=== PATIENT | female | born 1965 | race Caucasian/White ===

== ENCOUNTER 2020-04-29 13:13 | Emergency (ER) | payer BC ==
[~2020-04-29] VITALS: Ht 167.6 cm; Wt 81.7 kg
[~2020-04-29 13:13] MED LIST: GABA300 PO; HYDCHL12.5; LISI5 PO; OXYC5 PO
[2020-04-29] MEDS ORDERED: Percocet 10-321 EACH PO (16:48)
[2020-04-29] MEDS ORDERED: KETO10 PO (16:48)
[2020-04-29] MEDS ORDERED: LIDO700A20 TOP (16:48)
== END 2020-04-29 16:58 | disposition home or self-care (01) ==
LOC: ER 13:13
DX: M54.12 Radiculopathy, cervical region (principal); Z88.8 Allergy status to other drugs, medicaments and biological substances; Z79.899 Other long term (current) drug therapy; I10 Essential (primary) hypertension; F17.200 Nicotine dependence, unspecified, uncomplicated
CPT/HCPCS: 36415; 84484; 93005; 93010; 93931; 96372-59; 96374; 99284-25; J1170; J1885; J3010

== ENCOUNTER 2020-08-30 08:27 | Day surgery (SDC) | payer BC ==
[~2020-08-30] VITALS: Ht 167.6 cm; Wt 83.4 kg
[~2020-08-30 08:27] MED LIST changes: +AMIT50 PO; +Amlodipine Bes2.5 MG PO; +CYCL10 PO; +Clomipramine HC25 MG PO; +ESTR2 PO; +FURO20 PO; +HYDHCL25 PO; +KETO10 PO; +LIDO700A20 TOP; +LISINOPRIL-HCT1 EACH PO; +OXYC10ER PO; +Percocet 10-321 EACH PO
== END 2020-08-30 13:46 | disposition home or self-care (01) ==
LOC: ORSCSDS 08:27 → NM 09:00 → ORSCSDS 09:00
PROVIDERS: Surgery
PROC: 0HBHXZX Excision of Right Upper Leg Skin, External Approach, Diagnostic (ICD-10-PCS; principal; 2020-08-30 10:30)
PROC: 07BH0ZX Excision of Right Inguinal Lymphatic, Open Approach, Diagnostic (ICD-10-PCS; principal; 2020-08-30 10:30)
DX: C43.71 Malignant melanoma of right lower limb, including hip (principal); D36.0 Benign neoplasm of lymph nodes; I10 Essential (primary) hypertension
CPT/HCPCS: 78195; A9520; J0690; J2250; J2370; J2704; J3010; J7120; Q9968

== ENCOUNTER 2020-09-17 06:00 | Day surgery (SDC) | payer BC ==
[~2020-09-17] VITALS: Ht 167.6 cm; Wt 82.4 kg
--- NOTE | 2020-09-17 06:53 | NUR ---
Ambulatory in Day Surgery History, Chart, Medications and Allergies reviewed before start of procedure. Lungs clear T/O to Auscultation. Pre-Op teaching done. Pt verbalizes understanding.
--- NOTE | 2020-09-17 10:52 | NUR ---
PT PAIN LEVEL DOWN TO A TOLERABLE LEVEL AT DISCHARGE, ABLE TO HAVE A CONVERSATION WITHOUT DIFFICULTY AND DEMONSTRATE BACK [facility]. DISCARDED 15CC SANG DRAINAGE OUT OF [facility] AND SENT HOME CONTAINER AND [facility] INFO. Patient up to Ambulate independently. Gait steady. Discharge instructions reviewed with patient. Patient verbalizes understanding. Copy given to patient to take home. Patient States Post-Procedure ride home has been arranged. Discharged via wheelchair to private car for ride home. SMALL AMOUNT OF SANG DRAINAGE ON DRESSING. PT AWARE OF WHEN TO CALL DR HARRY FOR DRESSING AND SITE CARE. ALL BERLONINGS RETURNED TO PATIENT. RECEIVED 2 PAIN PILLS BEFORE LEAVING STEP AMND TOLERATED PO FOOD AND FLUIDS.
== END 2020-09-17 23:12 | disposition home or self-care (01) ==
LOC: ORSCMMR 06:00 → ORD 07:30 → ORSCMMR 07:30
PROVIDERS: Surgery
PROC: 07L Lymphatic and Hemic Systems, Occlusion (ICD-10-PCS; principal; 2020-09-17 07:30)
DX: I89.8 Other specified noninfective disorders of lymphatic vessels and lymph nodes (principal); C43.71 Malignant melanoma of right lower limb, including hip; I10 Essential (primary) hypertension; Z79.899 Other long term (current) drug therapy
CPT/HCPCS: A9270; J0690; J1100; J1885; J2250; J2405; J2704; J3010; J7120; Q9968

== ENCOUNTER → 2021-09-30 | Outpatient (CLI) | payer BC | LOC: LAB 13:05 → LAB SHORT 13:05 | DX: D48.5 Neoplasm of uncertain behavior of skin (principal) | CPT/HCPCS: 88305 ==

== ENCOUNTER → 2022-04-07 | Outpatient (CLI) | payer BC | END | disposition home or self-care (01) | LOC: LAB SHORT 12:20 → PLD 12:20 | DX: D48.5 Neoplasm of uncertain behavior of skin (principal) | CPT/HCPCS: 88305 ==

== ENCOUNTER 2023-03-10 18:49 | Inpatient (IN) | payer OTHER ==
[~2023-03-10] VITALS: Ht 167.6 cm; Wt 75.0 kg
[~2023-03-10 18:49] MED LIST changes: +AMIT25 PO; +LISI20 PO; +Ondansetron Odt8 MG; +POTA10T PO; +Prednisone10 MG PO; +QUETIAPINE FUMA25 MG PO; +TIZA4 PO
[2023-03-10] MEDS ORDERED: ZANAFLEX413 PO (19:04)
[2023-03-10 19:47] LABS: BASOPHILS ABSOLUTE AUTO 0.01 K/mm3 (0.00-0.23); BASOPHILS PERCENT AUTO 0 % (0-2); EOSINOPHILS ABSOLUTE AUTO 0.02 K/mm3 (0.00-0.68); EOSINOPHILS PERCENT AUTO 0 % (0-6); Hematocrit 41.8 % (33.0-51.0); Hemoglobin 14.7 g/dL (11.5-16.0); IMMATURE GRAN ABSOLUTE AUTO 0.02 K/mm3 (0.00-0.10); IMMATURE GRAN PERCENT AUTO 0 % (0-1); LYMPHOCYTES ABSOLUTE AUTO 1.01 K/mm3 (0.84-5.20); LYMPHOCYTES PERCENT AUTO 13 % (21-46); MONOCYTES ABSOLUTE AUTO 0.04 K/mm3 (0.16-1.47); MONOCYTES PERCENT AUTO 1 % (4-13); Mean Corpuscular HGB 32.8 pg (26.0-34.0); Mean Corpuscular HGB Conc 35.2 g/dL (31.5-36.5); Mean Corpuscular Volume 93 fL (80-100); Mean Platelet Volume 11.8 fL (9.1-12.4); NEUTROPHILS ABSOLUTE AUTO 6.58 K/mm3 (1.96-9.15); NEUTROPHILS PERCENT AUTO 86 % (41-73); Platelet Count 217 K/mm3 (150-400); RDW Coefficient Variation 11.9 % (11.7-14.2); RDW Standard Deviation 41.4 fL (35.1-46.3); Red Blood Cell Count 4.48 M/mm3 (3.80-5.20); White Blood Cell Count 7.68 K/mm3 (4.00-11.30)
[2023-03-10 20:11] LABS: Albumin, Blood 3.6 g/dL (3.4-5.0); Albumin/Globulin Ratio 0.9 (0.8-1.8); Bilirubin, Total 0.6 mg/dL (0.1-1.0); Bun/Creatinine Ratio 21.8 (12.0-20.0); Calcium, Blood 9.5 mg/dL (8.5-10.1); Creatinine, Blood 0.64 mg/dL (0.40-1.00); Globulin, Blood 3.9 g/dL (2.2-4.0); Potassium, Blood 3.7 mmol/L (3.5-5.5); Total Protein, Blood 7.5 g/dL (6.4-8.2)
--- NOTE | 2023-03-11 00:25 | NUR ---
PT ADMITTED TO MEDICAL FLOOR BED. PT TRANSFERS SELF TO MEDICAL FLOOR BED. PT IS ALERT AND ORIENTED, CURRENTLY HER PAIN IS CONTROLLED. PT DENIES NAUSEA AT THIS TIME. WITH PT. ORIENTED TO CALL LIGHT AND TO ROOM. PT IS INDEPENDENT UP TO [facility] NEEDED. WILL CONTINUE TO MONITOR.
[2023-03-11 00:29] VITALS: BP 141/83
[2023-03-11 02:48] VITALS: BP 155/93
--- NOTE | 2023-03-11 02:50 | NUR ---
PT ADMITTED TO FLOOR VIA WC FROM ER. PT TRANSFERRED SELF TO MEDICAL FLOOR BED. PT IS ALERT AND ORIENTED, AND DENIES ANY CHEST PAIN AT THIS TIME. PT HAS NITRO PASTE TO CHEST WALL. PT DENIES ANY OTHER COMPLAINTS OF PAIN OR DISCOMFORT AT THIS TIME. ORIENTED TO ROOM, CALL LIGHT SYSTEM. WILL CONTINUE TO MONITOR.
--- NOTE | 2023-03-11 04:02 | NUR ---
LACTATED RINGERS ACTUALLY STARTED AT 0055 TONIGHT, DURING DOWN TIME CHARTING.
--- NOTE | 2023-03-11 04:10 | NUR ---
PT REPORTS HEADACHE. NITRO PASTE REMOVED FROM CHEST WALL.
--- NOTE | 2023-03-11 04:20 | NUR ---
PT REPORTS LEFT SIDED SHARP CHEST PAIN, 3/10 SCALE, PT IS DIAPHORETIC AND REPORTS NAUSEA. EKG BEING PERFORMED. WILL GIVE PO ZOFRAN. 0424 - EKG NSR WITH MARKED SINUS ARRHYTHMIA. PT NOW DENIES ZOFRAN. CHEST PAIN 1/10 WHEN PT WAS LAYING FLAT. PT THEN REPORTS NEEDS TO USE BRP FOR BM.
[2023-03-11 05:38] LABS: BASOPHILS ABSOLUTE AUTO 0.01 K/mm3 (0.00-0.23); BASOPHILS PERCENT AUTO 0 % (0-2); EOSINOPHILS PERCENT AUTO 0 % (0-6); Hematocrit 40.6 % (33.0-51.0); Hemoglobin 14.5 g/dL (11.5-16.0); IMMATURE GRAN ABSOLUTE AUTO 0.06 K/mm3 (0.00-0.10); IMMATURE GRAN PERCENT AUTO 1 % (0-1); LYMPHOCYTES ABSOLUTE AUTO 1.38 K/mm3 (0.84-5.20); LYMPHOCYTES PERCENT AUTO 15 % (21-46); MONOCYTES ABSOLUTE AUTO 0.09 K/mm3 (0.16-1.47); MONOCYTES PERCENT AUTO 1 % (4-13); Mean Corpuscular HGB 33.3 pg (26.0-34.0); Mean Corpuscular HGB Conc 35.7 g/dL (31.5-36.5); Mean Corpuscular Volume 93 fL (80-100); NEUTROPHILS ABSOLUTE AUTO 7.99 K/mm3 (1.96-9.15); NEUTROPHILS PERCENT AUTO 84 % (41-73); Platelet Count 186 K/mm3 (150-400); RDW Coefficient Variation 11.9 % (11.7-14.2); Red Blood Cell Count 4.35 M/mm3 (3.80-5.20); White Blood Cell Count 9.53 K/mm3 (4.00-11.30)
--- NOTE | 2023-03-11 06:02 | NUR ---
PT MEDICATED WITH TORADOL, PO DILAUDED, AND CARAFATE WITHOUT PAIN RELIEF. CONTACTED DR. WHITNEY, RECEIVED ORDER FOR GI COCKTAIL - SEE EMAR. WILL FOLLOW UP WITH DR. WHITNEY IF PAIN NOT RELIEVED WITH GI COCKTAIL. CALL LIGHT WITHIN REACH.
[2023-03-11 06:06] LABS: Albumin, Blood 3.3 g/dL (3.4-5.0); Albumin/Globulin Ratio 0.9 (0.8-1.8); Bilirubin, Total 0.6 mg/dL (0.1-1.0); Bun/Creatinine Ratio 29.4 (12.0-20.0); Calcium, Blood 8.9 mg/dL (8.5-10.1); Creatinine, Blood 0.58 mg/dL (0.40-1.00); Globulin, Blood 3.6 g/dL (2.2-4.0); Magnesium, Blood 1.8 mg/dL (1.6-2.4); Potassium, Blood 4.1 mmol/L (3.5-5.5); Total Protein, Blood 6.9 g/dL (6.4-8.2)
--- NOTE | 2023-03-11 07:20 | NUR ---
SHIFT SUMMARY - MEDICATED SEVERAL TIMES DURING THE NIGHT WITHOUT MUCH RELIEF - SEE EMAR FOR DOCUMENTATION. PT IS NOW SLEEPING AFTER GIVING 1MG IV DILAUDED THIS AM, AND REPORTED PAIN RELIEF AFTER THIS IV ADMINISTRATION. PT'S PAIN IS IN HER UPPER TO MID ABDOMEN. CALL LIGHT WITHIN REACH. BED IN LOW POSITION. REPORT GIVEN TO JODY ALMEIDA THIS AM.
[2023-03-11 07:44] VITALS: BP 138/81
--- NOTE | 2023-03-11 16:15 | NUR ---
Patient is lying in bed and alert. Patient's spouse, Hebert, is bedside. They explain about patient's medical history and their concerns about what might be happening medically with her currently. They are also curious about the lulle in activity toward finding answers and about what the next steps might be, clinically. They are pleasant and have a kind demeanor. They talk freely about the loss of loved ones and the successes of their children and grandchildren. I normalized their experience, listened empathically and provided prayer. Patient and Hebert responded well and showed signs of increased peace.
--- NOTE | 2023-03-11 16:17 | NUR ---
PT IS A/OX4, PLEASANT AND COOPERATIVE. THE PT IS UP IND IN HER ROOM. THE PT CONTINUES TO HAVE UNCONTROLED ABD PAIN. PT GIVEN TORADOL, PO DILAUDID AND GI COCKTAILS T/O THE DAY. PT DENIES LYLE EMISIS TODAY AND REPORTS SOME MILD NAUSEA. PT REPORTS THAT HER PAIN IS JUST BELOW THE MID STERNUM. CAME AND SPOKE WITH THE PT REGARDING HER UNCONTROLED PT EARLIER THIS AM. PTS IS AT THE BEDSIDE. CALL LIGHT IN REACH. WILL CONTINUE TO MONIOTR AND ASSESS FOR CHANGES
[2023-03-11 18:53] VITALS: BP 152/91
[2023-03-11 20:20] VITALS: BP 159/89
[2023-03-12] VITALS (9 sets, daily range): BP systolic 151–188; BP diastolic 93–107
--- NOTE | 2023-03-12 03:53 | NUR ---
SHIFT SUMMARY PT AOX4, INDEPENDENT IN THE ROOM. CALLS WELL. PAIN MANAGEMENT HAS BEEN THE MAIN GOAL. SPOKE WITH PROVIDER AND A NEW MEDICATIONS WAS PRESCRIBED, IT APPEARS TO BE HELPING HER MANAGE HER PAIN. SHE HAS SLEPT OFF AND ON THROUGHOUT THE NIGHT, MORE THAN SHE HAS LAST NIGHT PER THE PT. HER HAS BEEN AT THE [facility]. CALL LIGHT IS WITHIN REACH, BED IN THE LOWEST POSITION. WILL REPORT TO ONCOMING NURSE.
[2023-03-12 06:02] LABS: BASOPHILS ABSOLUTE AUTO 0.01 K/mm3 (0.00-0.23); BASOPHILS PERCENT AUTO 0 % (0-2); EOSINOPHILS PERCENT AUTO 0 % (0-6); Hematocrit 38.6 % (33.0-51.0); Hemoglobin 13.4 g/dL (11.5-16.0); IMMATURE GRAN ABSOLUTE AUTO 0.05 K/mm3 (0.00-0.10); IMMATURE GRAN PERCENT AUTO 1 % (0-1); LYMPHOCYTES ABSOLUTE AUTO 1.33 K/mm3 (0.84-5.20); LYMPHOCYTES PERCENT AUTO 12 % (21-46); MONOCYTES ABSOLUTE AUTO 0.28 K/mm3 (0.16-1.47); MONOCYTES PERCENT AUTO 3 % (4-13); Mean Corpuscular HGB Conc 34.7 g/dL (31.5-36.5); Mean Corpuscular Volume 95 fL (80-100); NEUTROPHILS ABSOLUTE AUTO 9.33 K/mm3 (1.96-9.15); NEUTROPHILS PERCENT AUTO 85 % (41-73); Platelet Count 166 K/mm3 (150-400); RDW Coefficient Variation 11.9 % (11.7-14.2); RDW Standard Deviation 41.6 fL (35.1-46.3); Red Blood Cell Count 4.06 M/mm3 (3.80-5.20)
[2023-03-12 07:11] LABS: Bun/Creatinine Ratio 30.1 (12.0-20.0); C-Reactive Protein, High Sens. 1.48 mg/L (0.000-3.000); Calcium, Blood 8.5 mg/dL (8.5-10.1); Creatinine, Blood 0.63 mg/dL (0.40-1.00); Potassium, Blood 4.1 mmol/L (3.5-5.5)
--- NOTE | 2023-03-12 16:42 | NUR ---
PT SBP >180. NO ACUTE SYMPTOMS PATIENT DENIES CHEST PAIN AND SOB. MD NOTIFIED. PLS SEE EMAR.
--- NOTE | 2023-03-12 19:45 | NUR ---
SHIFT SUMMARY PT IS ALERT AND ORIENTED X4. INDEPENDENT IN THE ROOM. PAIN HAS BEEN HARD TO CONTROL. PT REPORTS SHARP STABBING PAINS IN THE UPPER GASTRIC AREA. EGD PLANNED FOR TOMORROW. NPO AT MIDNIGHT. BP REMAINS TO BE ELEVEATED. TREATED PER EMAR. BED IS IN THE LOWEST POSITION WITH CALL LIGHT IN ROOM.
[2023-03-13] VITALS (17 sets, daily range): BP systolic 135–182; BP diastolic 89–112
--- NOTE | 2023-03-13 06:23 | NUR ---
NPO SINCE MIDNIGHT FOR PENDING EGD. AO, INDEPENDENT, PLEASANT, HYPERTENSIVE BUT VSS OTHERWISE, PRN PAIN MEDS GIVEN ORDERED. PT STATES PAIN LEVELS ARE DECREASING COMPARED TO PREVIOUS SHIFTS. NO EVENTS DURING SHIFT.
--- NOTE | 2023-03-13 12:51 | NUR ---
PT HERE VIA [facility] FOR EGD. History, Chart, Medications and Allergies reviewed before start of procedure.Patient confirms NPO status and agrees with scheduled surgery.
--- NOTE | 2023-03-13 13:14 | NUR ---
03/13/23 1314 Devon Mendoza HISTORY, CHART, MEDICATIONS AND ALLERGIES REVIEWED BEFORE START OF PROCEDURE. PATIENT CONFIRMS NPO STATUS AND AGREES WITH SCHEDULED PROCEDURE. 3-LEAD EKG REVIEWED WITH PHYSICIAN PRIOR TO START OF PROCEDURE. MONITOR INTACT WITH CONTINUOUS PULSE OXIMETRY,CAPNOGRAPHY, 3-LEAD EKG, INTERMITTENT BP. SUPPLEMENTAL O2 TO BE TITRATED THROUGHOUT PROCEDURE TO MAINTAIN O2 SATURATION ABOVE 90%. PATIENT DETERMINED TO BE ASA APPROPRIATE FOR PROPOFOL SEDATION PRIOR TO START OF PROCEDURE BY
--- NOTE | 2023-03-13 18:21 | NUR ---
SHIFT SUMMARY PT ALERT AND ORIENTED X4. EGD TODAY PLS SEE NOTES. PAIN IS MORE CONTROLLED AT THIS TIME. PT IS ON HOME MEDICATION SCHEDULE AND WORKING TO DECREASE USE OF OTHER PAIN MEDICATIONS. PT EDUCATED ON IMPORTANCE OF REPORTING PAIN IF IT INCREASES ABOVE EXCEPTED LEVEL OR IS UNCONTROLLED. INDEPENDENT IN THE ROOM.
[2023-03-14 04:18] VITALS: BP 158/93
--- NOTE | 2023-03-14 06:09 | NUR ---
SLEPT MUCH OF SHIFT. SO FAR PATIENT IS MEETING PAIN MEDS GOAL THIS SHIFT. OXY 10 MG GIVEN Q5 DURING MY SHIFT. AO, INDEPENDENT, PLEASANT, NO EVENTS DURING SHIFT.
[2023-03-14 07:37] VITALS: BP 169/97
[2023-03-14] MEDS ORDERED: LISI20 PO (10:07)
[2023-03-14] MEDS ORDERED: PANT40 PO (10:07)
--- NOTE | 2023-03-14 10:35 | NUR ---
DC- PT LEFT WITH IN STABLE CONDITION FOR DC. PT LEFFT WITH ALL BELONGINGS. ALL DC INSTRUCTIONS/PAPERWORK SIGNED AND GIVEN TO PT.
== END 2023-03-14 10:25 | disposition home or self-care (01) | DRG 392 ==
LOC: ER 18:49 → MEDS 18:50 → ENPENDDIS 03-14 09:42 → MEDS 03-14 10:25
PROVIDERS: Emergency Medicine; Internal Medicine; Student in an Organized Health Care Education/Training Program; ADMIT Student in an Organized Health Care Education/Training Program
PROC: 0D998ZX Drainage of Duodenum, Via Natural or Artificial Opening Endoscopic, Diagnostic (ICD-10-PCS; 2023-03-13)
PROC: 0D958ZX Drainage of Esophagus, Via Natural or Artificial Opening Endoscopic, Diagnostic (ICD-10-PCS; 2023-03-13)
PROC: 0D968ZX Drainage of Stomach, Via Natural or Artificial Opening Endoscopic, Diagnostic (ICD-10-PCS; principal; 2023-03-13 13:00)
DX: K52.9 Noninfective gastroenteritis and colitis, unspecified (principal); C43.9 Malignant melanoma of skin, unspecified; I10 Essential (primary) hypertension; K29.40 Chronic atrophic gastritis without bleeding; G43.909 Migraine, unspecified, not intractable, without status migrainosus; M54.9 Dorsalgia, unspecified; K74.60 Unspecified cirrhosis of liver; G89.4 Chronic pain syndrome; K71.6 Toxic liver disease with hepatitis, not elsewhere classified; T38.7X5A Adverse effect of androgens and anabolic congeners, initial encounter; M48.061 Spinal stenosis, lumbar region without neurogenic claudication; M17.11 Unilateral primary osteoarthritis, right knee; F17.200 Nicotine dependence, unspecified, uncomplicated; Z88.8 Allergy status to other drugs, medicaments and biological substances; Z79.891 Long term (current) use of opiate analgesic; Z90.710 Acquired absence of both cervix and uterus; Z98.51 Tubal ligation status; Z98.890 Other specified postprocedural states; Z79.899 Other long term (current) drug therapy
CPT/HCPCS: 36415; 71045; 74175; 74177; 80048; 80053; 83605; 83690; 83735; 84484; 85025; 85651; 86141; 88305; 88312; 88342; 93005; 93010; 96361; 96372; 96374-59; 96375; 96376; 99285-25; A9270; C9113; G0378; J0360; J1170; J1650; J1885; J2250; J2270; J2704; J2765; J7120; Q9967

== ENCOUNTER 2023-12-17 23:05 | Emergency (ER) | payer OTHER ==
[~2023-12-17] VITALS: Ht 167.6 cm; Wt 69.4 kg
[~2023-12-17 23:05] MED LIST changes: +PANT40 PO; +ZANAFLEX413 PO
[2023-12-17 23:47] VITALS: BP 156/97
== END 2023-12-17 23:50 | disposition home or self-care (01) ==
LOC: ER 23:05
DX: Z00.00 Encounter for general adult medical examination without abnormal findings (principal); Z88.8 Allergy status to other drugs, medicaments and biological substances; Z79.899 Other long term (current) drug therapy; I10 Essential (primary) hypertension; G43.909 Migraine, unspecified, not intractable, without status migrainosus; F17.200 Nicotine dependence, unspecified, uncomplicated
CPT/HCPCS: 96372-59; 96374; 99283